=== PATIENT | female | born 1930 | race African-American/Black ===

== ENCOUNTER 2016-09-16 08:57 | Outpatient (CLI) | payer MEDICARE | END 2016-09-16 08:58 | disposition home or self-care (01) | LOC: NAV ULT 08:57 | PROVIDERS: ATTEND Internal Medicine | DX: I11.9 Hypertensive heart disease without heart failure (principal); R01.1 Cardiac murmur, unspecified; I08.3 Combined rheumatic disorders of mitral, aortic and tricuspid valves; I37.1 Nonrheumatic pulmonary valve insufficiency | CPT/HCPCS: 93306 ==